=== PATIENT | male | born 1955 | race Caucasian/White ===

== ENCOUNTER 2017-03-29 06:26 | Day surgery (SDC) | payer BC ==
[~2017-03-29] VITALS: Ht 185.4 cm; Wt 86.4 kg
[2017-03-29 07:13] VITALS: BP 131/76
[2017-03-29 10:00] VITALS: BP 117/55
[2017-03-29 10:55] VITALS: BP 103/50
== END 2017-03-29 11:00 | disposition home or self-care (01) ==
LOC: SDC 06:26
DX: H35.371 Puckering of macula, right eye (principal); H43.821 Vitreomacular adhesion, right eye; H35.341 Macular cyst, hole, or pseudohole, right eye; E78.5 Hyperlipidemia, unspecified; M48.061 Spinal stenosis, lumbar region without neurogenic claudication
CPT/HCPCS: J0690; J2250; J3010; J3300